=== PATIENT | female | born 1955 | race Caucasian/White ===

== ENCOUNTER 2020-09-24 13:17 | Emergency (ER) | payer OTHER ==
[~2020-09-24] VITALS: Ht 165.1 cm; Wt 84.8 kg
[~2020-09-24 13:17] MED LIST: ASPI325EC PO; CALCIUM PO; Glucosamine Ch1 EAC2 PO; Hair, Skin & N1 EACH PO; Percocet 5-3251 EACH PO; VITAMIN D PO; ZINC10 MG PO
[2020-09-24] MEDS ORDERED: ALPRAZOLAM0.5 M1 PO (13:52)
[2020-09-24] MEDS ORDERED: LEVOFLOXACIN5 ML BOTHEYES (14:36)
== END 2020-09-24 14:42 | disposition home or self-care (01) ==
LOC: ER 13:17
DX: H10.9 Unspecified conjunctivitis (principal); B96.89 Other specified bacterial agents as the cause of diseases classified elsewhere; Z88.6 Allergy status to analgesic agent; Z79.899 Other long term (current) drug therapy
CPT/HCPCS: 99283; A9270

== ENCOUNTER → 2023-05-19 | Outpatient (CLI) | payer OTHER ==
[~2023-05-19] MED LIST changes: +ALPRAZOLAM0.5 M1 PO; +LEVOFLOXACIN5 ML BOTHEYES
== END | disposition home or self-care (01) ==
LOC: LAB 14:15 → LAB SHORT 14:15
DX: R30.0 Dysuria (principal)
CPT/HCPCS: 87077; 87086; 87186